=== PATIENT | female | born 1950 | race Caucasian/White ===

== ENCOUNTER 2018-05-29 15:27 | Observation (INO) | payer MEDICARE, OTHER ==
[~2018-05-29] VITALS: Wt 84.5 kg
[2018-05-29 16:04] LABS: BASO # 0.1 (0.0-0.2); BASO % 0.7 % (0.0-2.0); EOS # 0.3 (0.0-0.7); EOS % 2.5 % (0-4.0); GRAN # 7.5 (1.4-6.5); GRAN % 68.5 % (42.2-75.2); HEMOGLOBIN 14.6 g/dl (12.5-16.0); LYMPH # 2.5 (1.2-3.4); LYMPH % 22.7 % (20.0-51.0); MEAN CELL VOLUME 90 fl (80.0-100.0); MEAN CORPUSCULAR HEMOGLOBIN 30 pg (27.0-31.0); MEAN CORPUSCULAR HGB CONC 33 g/dl (33.0-37.0); MEAN PLATELET VOLUME 9.5 fl (7.4-10.4); MONO # 0.6 (0.1-0.6); MONO % 5.2 % (1.7-9.3); PLATELET COUNT 329 K/mm3 (130-400); REDCELL DISTRIBUTION WIDTH-CV 13.1 % (11.5-14.5)
[2018-05-29 16:09] LABS: ARTERIAL BLD GAS O2 SATURATION 95.2 % (92-100); ARTERIAL BLD GAS TCO2 CT 21.4; ARTERIAL BLOOD GAS BASE EXCESS -3.6 (-2-2); ARTERIAL BLOOD GAS HCO3 20.4 meq/L (22-26)
[2018-05-29] MEDS ORDERED: ZESTRIL 5MG5 MG PO (16:10)
[2018-05-29] MEDS ORDERED: GLUCOPHAGE500 MG/TAB PO (16:12)
[2018-05-29 16:24] LABS: ALANINE AMINOTRANSFERASE 29 U/L (9-52); ALBUMIN 3.8 gm/dL (3.5-5.0); ALKALINE PHOSPHATASE 75 U/L (50-136); ANION GAP 10 mmol/L (7-16); AST,SGOT 36 U/L (15-37); BILIRUBIN,TOTAL 0.4 mg/dL (0.0-1.0); BLOOD UREA NITROGEN 18 mg/dL (7-17); CALCIUM 9.1 mg/dL (8.4-10.2); CARBON DIOXIDE 26 mmol/L (22-30); CHLORIDE 102 mmol/L (98-107); CREATININE, serum 0.87 mg/dL (0.52-1.25); GLUCOSE 147 mg/dL (74-106); POTASSIUM 3.7 mmol/L (3.4-5.0); SODIUM 138 mmol/L (137-145); TOTAL PROTEIN 6.8 gm/dL (6.4-8.2)
[2018-05-29 16:36] LABS: TROPONIN-I < 0.012 ng/mL (0.000-0.034)
[2018-05-29 17:53] LABS: COLLECTION METHOD CLEAN CATCH
[2018-05-29 18:08] LABS: MUCOUS Present /lpf; PH 5 (5-8); SQUAMOUS EPITHELIAL 0-2 /hpf; URINE APPEARANCE Clear; URINE BACTERIA None Seen /hpf; URINE BILIRUBIN Negative (NEGATIVE); URINE BLOOD Negative (NEGATIVE); URINE COLOR Yellow; URINE GLUCOSE Negative (NEGATIVE); URINE KETONE Negative (NEGATIVE); URINE LEUKOCYTE ESTERASE Trace (NEGATIVE); URINE NITRATE Negative (NEGATIVE); URINE PROTEIN(semi-quant) Negative (NEGATIVE); URINE RBC 0-2 /hpf; URINE UROBILINOGEN Negative (NEGATIVE)
[2018-05-29 19:06] VITALS: BP 133/70; PULSE 74; TEMP 97.7
[2018-05-29] MEDS ORDERED: ASPIRIN 81M81 MG/TA2 PO (19:35)
[2018-05-29 21:49] VITALS: BP 119/64; PULSE 71
[2018-05-29 21:50] VITALS: BP 116/66; PULSE 69
[2018-05-29 21:51] VITALS: BP 124/66; PULSE 72
[2018-05-29 23:07] VITALS: BP 106/50; PULSE 71; TEMP 98.3
[2018-05-30 03:08] VITALS: BP 125/60; PULSE 65; TEMP 98
[2018-05-30 06:09] LABS: BASO # 0.1 (0.0-0.2); BASO % 0.9 % (0.0-2.0); EOS # 0.3 (0.0-0.7); EOS % 4.7 % (0-4.0); GRAN # 4.2 (1.4-6.5); GRAN % 64.4 % (42.2-75.2); LYMPH # 1.6 (1.2-3.4); LYMPH % 23.7 % (20.0-51.0); MEAN CELL VOLUME 88 fl (80.0-100.0); MEAN CORPUSCULAR HGB CONC 33 g/dl (33.0-37.0); MEAN PLATELET VOLUME 9.6 fl (7.4-10.4); MONO # 0.4 (0.1-0.6); PLATELET COUNT 237 K/mm3 (130-400); RED BLOOD COUNT 3.91 M/mm3 (4.10-5.30); REDCELL DISTRIBUTION WIDTH-CV 13.2 % (11.5-14.5)
[2018-05-30 06:30] LABS: ANION GAP 9 mmol/L (7-16); BLOOD UREA NITROGEN 14 mg/dL (7-17); CALCIUM 8.4 mg/dL (8.4-10.2); CARBON DIOXIDE 22 mmol/L (22-30); CHLORIDE 109 mmol/L (98-107); CREATININE, serum 0.69 mg/dL (0.52-1.25); GLUCOSE 138 mg/dL (74-106); HEMATOCRIT 34.4 % (37.0-47.0); HEMOGLOBIN 11.5 g/dl (12.5-16.0); MEAN CORPUSCULAR HEMOGLOBIN 29 pg (27.0-31.0); POTASSIUM 4.1 mmol/L (3.4-5.0); SODIUM 140 mmol/L (137-145)
[2018-05-30 06:43] LABS: TROPONIN-I < 0.012 ng/mL (0.000-0.034)
[2018-05-30 07:51] VITALS: BP 118/63; PULSE 61; TEMP 97.9
== END 2018-05-30 16:32 | disposition home or self-care (01) ==
LOC: COL.ER 15:27 → MEDICAL 17:23
PROVIDERS: Family Medicine; Hospitalist
DX: R55 Syncope and collapse (principal); E87.2 Acidosis; I10 Essential (primary) hypertension; I95.9 Hypotension, unspecified; Z79.84 Long term (current) use of oral hypoglycemic drugs
CPT/HCPCS: G0378; G0379; J1644; J1815; J7030; Q9967

== ENCOUNTER 2019-06-27 10:28 | Inpatient (IN) | payer MEDICARE, OTHER ==
[~2019-06-27] VITALS: Ht 167.6 cm; Wt 89.4 kg
[2019-06-27] VITALS (8 sets, daily range): BP systolic 118–142; BP diastolic 42–68; PULSE 91–106; TEMP 97.7–97.9
[~2019-06-27 10:28] MED LIST: ASPIRIN 81M81 MG/TA2 PO; GLUCOPHAGE500 MG/TAB PO; ZESTRIL 5MG5 MG PO
[2019-06-27] MEDS ORDERED: B COMPLEX & B121 TAB (12:01)
[2019-06-27] MEDS ORDERED: MULTI VITAMINS1 TAB PO (12:01)
[2019-06-27] MEDS ORDERED: ARICEPT 5MG PO (12:03)
[2019-06-27] MEDS ORDERED: NAMENDA5 MG PO (12:04)
[2019-06-27] MEDS ORDERED: CALCIUM CARBON650 M2 (12:05)
[2019-06-27] MEDS ORDERED: PRIL40 PO (12:07)
--- NOTE | 2019-06-27 20:15 | NUR ---
Pt. arrived to the floor via bed from PACU. Pt. is alert and oriented to self and birthday. Pt. not able to name location of self. IV to rt. AC petent, IV fluids infusing per orders. Vitals stable. Dressing to abd. midline incision CDI. Colostomy noted with minimal bloody drainage in bag. Hirsch catheter to DD, red-tinged urine noted. Pt. very drowsey at this time. Will monitor. Bed alarm on.
[2019-06-27] MEDS ORDERED: ZOLOFT 25MG25 MG PO (21:34)
[2019-06-28 03:59] VITALS: BP 131/65; PULSE 104; TEMP 98.2
[2019-06-28 06:52] LABS: ALBUMIN 2.3 gm/dL (3.5-5.0); BILIRUBIN,TOTAL 0.3 mg/dL (0.0-1.0); CALCIUM 7.3 mg/dL (8.4-10.2); CREATININE, serum 0.71 (0.52-1.25); POTASSIUM 4.4 mmol/L (3.4-5.0); TOTAL PROTEIN 4.9 gm/dL (6.4-8.2)
[2019-06-28 07:25] VITALS: BP 147/74; PULSE 105; TEMP 97.5
--- NOTE | 2019-06-28 08:00 | NUR ---
Patient in bed resting. Alert and oriented to person and place. Midline incision with gauze dressing, bloody drainage present. Ostomy to right abdomen with gas and loose stool present. Small amount of bloody drainage present in ostomy bag. Hirsch to dependent drainage with hazy silvestre urine present. SCDs to BLE. Fluids infusing per orders to Right AC. Epidural site intact. Denies pain or further needs at this time. Spouse at bedside.
[2019-06-28 08:53] LABS: HEMATOCRIT 39.6 % (37.0-47.0); HEMOGLOBIN 13.1 g/dl (12.5-16.0); MEAN CELL VOLUME 89 fl (80.0-100.0); MEAN CORPUSCULAR HEMOGLOBIN 29 pg (27.0-31.0); MEAN CORPUSCULAR HGB CONC 33 g/dl (33.0-37.0); MEAN PLATELET VOLUME 9.4 fl (7.4-10.4); PLATELET COUNT 499 K/mm3 (130-400); RED BLOOD COUNT 4.46 M/mm3 (4.10-5.30); REDCELL DISTRIBUTION WIDTH-CV 13.4 % (11.5-14.5)
[2019-06-28 09:14] LABS: BAND 33 % (0-10); LYMPHOCYTE 2 % (20.0-51.0); METAMYELOCYTE 2 % (0-0); NEUTROPHILS 57 % (42.0-75.2)
[2019-06-28 09:15] LABS: BURR CELLS 3+; PLATELET ESTIMATE INCREASED (NORMAL)
[2019-06-28 09:16] LABS: HYPOCHROMIA 1+
[2019-06-28 10:42] LABS: COLLECTION METHOD CATHETER
[2019-06-28 10:56] LABS: MUCOUS Present /lpf; PH 5 (5-8); SQUAMOUS EPITHELIAL None Seen /hpf; URINE APPEARANCE Cloudy; URINE BACTERIA None Seen /hpf; URINE BILIRUBIN Negative (NEGATIVE); URINE BLOOD 3+ (NEGATIVE); URINE COLOR Amber; URINE GLUCOSE 1+ (NEGATIVE); URINE KETONE 2+ (NEGATIVE); URINE LEUKOCYTE ESTERASE Trace (NEGATIVE); URINE NITRATE Negative (NEGATIVE); URINE PROTEIN(semi-quant) 2+ (NEGATIVE); URINE RBC >50 /hpf; URINE UROBILINOGEN >=4.0 mg/dL (NEGATIVE)
[2019-06-28 12:10] VITALS: BP 152/70; PULSE 107; TEMP 97.9
[2019-06-28 16:17] VITALS: BP 126/67; PULSE 117; TEMP 98.6
--- NOTE | 2019-06-28 16:27 | NUR ---
Senior Manufacturing Technician met with patient's Michael (ph#[phone]) and patient's daughter in law Liz as patient was sleeping. Patient's reports he and patient live in [place]. Patient receives primary care from [facility] and obtains medications from [facility] in [place]. Patient does not have Advance Directives on file but patient's was interested in taking the form to be completed tomorrow. JULIO provided. Patient's and patient's daughter in law discussed a skilled stay upon discharge so SW presented Medicare.gov list of retirement facilities in the area. SW also presented Patient Choice form. Patient's selected [facility] as first preference, [facility] as second preference, and [place] [facility] as [facility] preference. Patient's understood the choice form and provided signature. JULIO placed original in patient's chart and provided copy to patient's . JULIO faxed referrals to [facility], [facility], and [place] [facility]. JULIO will continue to follow.
--- NOTE | 2019-06-28 16:37 | NUR ---
Notified Rona EVANGELISTA of decreased urine output.
--- NOTE | 2019-06-28 16:59 | NUR ---
Bladder scanned patient, 26ml of urine in bladder.
[2019-06-28 18:26] LABS: CALCIUM 7.7 mg/dL (8.4-10.2); CREATININE, serum 1.15 (0.52-1.25); POTASSIUM 4.3 mmol/L (3.4-5.0)
--- NOTE | 2019-06-28 18:50 | NUR ---
Patient drowsy throughout the day, arouses to voice and touch. Family remains at bedside. Reported off to security shift manager.
--- NOTE | 2019-06-28 20:00 | NUR ---
Patient rouses to name only, family at bedside. Has Epidural infusing at 7cc/hr, site has mild drainage on gauze. Has edema to both arms, urine remains tea colored with poor output. Did deflate and reinflate balloon and irrigate with 10cc NS. IV site to right AC with LR at 150cc/hr. Midline incision without drainage, colostomy with pink watery fluid in bag. Stoma firm, dark red.
[2019-06-28 21:47] VITALS: BP 98/53; PULSE 131; TEMP 99.2
[2019-06-28 22:42] VITALS: BP 109/59; PULSE 120; TEMP 101.4
--- NOTE | 2019-06-28 22:46 | NUR ---
Spoke with Dr Stinson regarding patient's status, fever 101.4 ax, resp 28/min HR in 120's. Patient is lethargic. Placed on oxygen at 3L/nc for SaO2 90%. Urine output 50cc brown since fluids have been infusing at 150cc/hr since 1529 today. Bilateral arms are edematous. Will notify surgeon sediment remediation consultant also.
--- NOTE | 2019-06-28 22:50 | NUR ---
Spoke with Dr Hannon regarding patients status. New order for NS bolus of 500cc over 2 hours then NS at 150cc/hr. Tylenol suppos for fever greater than 101.4.
[2019-06-29] VITALS (312 sets, daily range): BP systolic 76–121; BP diastolic 25–62; PULSE 103–124; TEMP 97.5–102.7; O2SAT 66–100
--- NOTE | 2019-06-29 00:05 | NUR ---
Tylenol suppository given at this time. Patient moans in pain when being turned. Gauze to epidural catheter with drainage. Patient will transfer to ICU 2 due to elevated lactic acid of 4.4 and decreased urine output. Attempted to find second IV site without success. IV NS bolus infusing to right AC without problem.
--- NOTE | 2019-06-29 00:53 | NUR ---
Precious, RN calls report from surgical floor. Patient will be brought down shortly.
--- NOTE | 2019-06-29 01:00 | NUR ---
IV Bolus complete. IVF of NS at 150cc/hr infusing with concurrent Zosyn 4.5GM at this time. Report to Nia BECERRA in ICU. Urine output 75cc since 1900.
--- NOTE | 2019-06-29 01:09 | NUR ---
Patient arrives at this time via bed. Patient moved to unit bed via slide board. Patient opens eyes to name, but does not stay awake long. It takes multiple tries to keep her awake to get her to squeeze her hands, then she immediately falls asleep again. Patient is resposive to pain when turning, she moans out and says "no no no", then falls back asleep once movement has stopped. Patient's pupils are constricted and nonreactive. Assessment complete. Lungs are clear in the upper lobes and diminished in all, bases bilaterally are absent. Bowel sounds heard in the right upper quadrant, all others are hypoactive. HR and Rhythm are regular, she is tachycardic in the 120-130's. Peripheral pulses are barely palpable in all extremities. Patient's skin is hot to the touch and she is very diaphoretic. Temperature measured at 102.7. Room fan turned on and AC turned up. Patient's stoma is a dark red/purple color and is leaking serosanguinous fluid. There are small black pieces present at the stoma site that look like they are from cautery. Patient's nova catheter is patent and has a very small amount of dark brown urine in the collection chamber, no urine is present in the tubing. It was stated by MARIAM Lang on surgical that patient only had 75ml out for the enitre shift so far. Patient has no current needs at this time. Will check orders and proceed with care
--- NOTE | 2019-06-29 01:15 | NUR ---
Taken to ICU 2 via bed, accompanied by staff and spouse.
--- NOTE | 2019-06-29 01:35 | NUR ---
Dr Hannon here at this time to place a central line. Time out performed at this time. All staff present wearing masks. Prep and procedure begins at this time. This nurse remains at bedside through entire procedure and assists as needed. 0150 - Central line complete. Triple lumen catheter is placed left subclavian. Sterile caps applied, blood turn confirmed, dressing applied. Stat chest xray ordered to confirm placement.
--- NOTE | 2019-06-29 02:30 | NUR ---
This nurse has been at patient's bedside since arrival. Patient is a very hard stick for ABG's. Assisted RT Mayo and RT Yuliana with ABG draw and finding a site as pulses are very hard to find. Patient's work of breathing has increased, respiratory rate has been increasing. Repositioned patient in the bed, HOB elevated, and O2 increased to 4L. Patient continues to be hot and diaphoretic. Sheet removed and fan increased. Will continue to remain at bedside.
[2019-06-29 02:48] LABS: INR 1.7 (0.8-3.0); PROTHROMBIN TIME 20.3 SECONDS (9.7-12.8)
[2019-06-29 03:04] LABS: ARTERIAL BLD GAS O2 SATURATION 95.1 % (92-100); ARTERIAL BLOOD GAS BASE EXCESS -10.6 (-2-2); ARTERIAL BLOOD GAS HCO3 12.3 meq/L (22-26); ARTERIAL BLOOD GAS PO2 74.1 mmHg (80-100); ARTERIAL BLOOD GAS pH 7.38 (7.35-7.45)
[2019-06-29 03:06] LABS: ARTERIAL BLOOD GAS PCO2 21.6 mmHg (35-45)
--- NOTE | 2019-06-29 03:32 | NUR ---
[facility] at [facility] time and spoke with Amelia. Notified that patient is looking worse. Work of breathing has increased and rate is up to 36. Patient continues to be tachycardic in the 120's. Patient is only 92% on 4L NC. Requesting recomendations from Physician. 0345 - EICU calls back at this time and cameras into the room. Spoke with Dr. Rivera and gave him update on patient status. Patient is now cool and clammy. She looks worse than when she arrived. Had had no urine output since arrival. Nicole Recommends intubation as patient is deteriorating. He will fax over orders shortly with his recommendations. 0357 - Dr Akhtar called at this time and notified that EICU has recommended that patient be intubated. Updated him on patient status. Dr. Akhtar agrees with recommendation and requests that I call and speak with Dr. Stinson as to who he would like to intubate the patient. Dr. Akhtar says he will be here in 45-60mins. 0403 - Dr. Stinson called and notified of patient status. Dr. Stinson also agrees with intubation. Would like Anesthesia called to intubate the patient. 0406 - Spoke with Frank from anesthesia and he is coming in for intubation. 0408 - RT Mayo notified that we will be intubating with anesthesia intubated.
--- NOTE | 2019-06-29 04:20 | NUR ---
CHRISTOPHER Marie from [facility] here at this time to intubate. RSI kit and Intubation box are ready in the room. All suction in room ready and vent on standby at bedside. All consents obtained from , Michael. He has been explained the procedure and we will proceed. 0430 - CHRISTOPHER Marie Pulls up and gives medications. With assistance of RT Mayo, patient is positioned and bagged. Restraints applied to patient at this time. 0438 - patient intubated with a 7.5 tube, 22 at the teeth. 0450 - Procedure ends at this time. Patient's ET tube attached to ventilator. Stat chest xray ordered at this time for placement confirmation. 0500 - OG tube placed at this time, confirmed with auscultation and aspiration of gastric contents. Radiology here for portable xray. Dr Akhtar confirms placement of ET and OG tubes.
--- NOTE | 2019-06-29 04:55 | NUR ---
Dr Akhtar here at this time.
[2019-06-29 05:28] LABS: HEMOGLOBIN 11.7 g/dl (12.5-16.0); MEAN CELL VOLUME 89 fl (80.0-100.0); MEAN CORPUSCULAR HEMOGLOBIN 29 pg (27.0-31.0); MEAN CORPUSCULAR HGB CONC 33 g/dl (33.0-37.0); MEAN PLATELET VOLUME 9.3 fl (7.4-10.4); RED BLOOD COUNT 4.04 M/mm3 (4.10-5.30); REDCELL DISTRIBUTION WIDTH-CV 13.6 % (11.5-14.5)
[2019-06-29 05:30] LABS: HEMATOCRIT 35.9 % (37.0-47.0); PLATELET COUNT 398 K/mm3 (130-400)
--- NOTE | 2019-06-29 05:30 | NUR ---
Dr. Akhtar requests that an arterial line be placed. CHRISTOPHER Marie remains in unit to place this. 0610 - Arterial line placed with difficulty. Good waveform achieved.
[2019-06-29 05:33] LABS: INR 1.9 (0.8-3.0); PROTHROMBIN TIME 22.2 SECONDS (9.7-12.8)
[2019-06-29 05:35] LABS: PARTIAL THROMBOPLASTIN TIME 46.8 SECONDS (26.0-37.0)
[2019-06-29 05:42] LABS: ALANINE AMINOTRANSFERASE 28 U/L (9-52); ALBUMIN 1.6 gm/dL (3.5-5.0); ALKALINE PHOSPHATASE 43 U/L (50-136); ANION GAP 13 mmol/L (7-16); AST,SGOT 27 U/L (15-37); BILIRUBIN,TOTAL 0.3 mg/dL (0.0-1.0); BLOOD UREA NITROGEN 38 mg/dL (7-17); CALCIUM 7.1 mg/dL (8.4-10.2); CHLORIDE 112 mmol/L (98-107); CREATININE, serum 2.03 (0.52-1.25); GLUCOSE 142 mg/dL (74-106); POTASSIUM 4.8 mmol/L (3.4-5.0); SODIUM 137 mmol/L (137-145); TOTAL PROTEIN 3.7 gm/dL (6.4-8.2)
[2019-06-29 05:44] LABS: CARBON DIOXIDE 12 mmol/L (22-30)
[2019-06-29 05:51] LABS: TROPONIN-I < 0.012 ng/mL (0.000-0.035)
[2019-06-29 05:54] LABS: BAND 5 % (0-10); HYPOCHROMIA 1+; LYMPHOCYTE 2 % (20.0-51.0); MYELOCYTE 3 % (0-0); NEUTROPHILS 86 % (42.0-75.2); PLATELET ESTIMATE NORMAL (NORMAL); TOXIC GRANULATION PRESENT
--- NOTE | 2019-06-29 06:00 | NUR ---
Dr. Akhtar gives verbal orders at this time to start levophed and bolus another 500ml of LR. Levophed to be started per orders.
--- NOTE | 2019-06-29 06:38 | NUR ---
Vancomycin Initial Dosing Pharmacy Note Ordering provider: Hermilo Indication/duration: GI infection LABS: SCr 2.03 on 06/29/19 Recommendation: Loading dose: 1 gram given 06/29/19 @ 0600 Maintenance dose: 1 gram Q24H Trough goal: 15-20 ug/mL Will continue to monitor renal function and trough levels.
--- NOTE | 2019-06-29 07:10 | NUR ---
PT WAS INTUBATED AROUND 0420 WITH SETTINGS FROM [facility] OF 24RR, 450 VT, 100%, 5 OF PEEP. GOOD CHEST RAISE, COLOR CHANGE, BILATERAL BREATH SOUNDS. PT ON DOCUMENTED SETTINGS.
--- NOTE | 2019-06-29 07:45 | NUR ---
Bedside report given to MARIAM Zuleta. All lines, tubes, medications, and surgical sites confirmed and assessed. Transfer of care at this time.
--- NOTE | 2019-06-29 07:45 | NUR ---
Bedside report received from MARIAM Kramer. All lines, tubes and vent settings reviewed. Care taken over at this time.
[2019-06-29 07:47] LABS: ARTERIAL BLD GAS O2 SATURATION 99.4 % (92-100); ARTERIAL BLOOD GAS BASE EXCESS -14.3 (-2-2); ARTERIAL BLOOD GAS HCO3 10.3 meq/L (22-26); ARTERIAL BLOOD GAS pH 7.29 (7.35-7.45)
[2019-06-29 07:48] LABS: ARTERIAL BLOOD GAS PCO2 21.9 mmHg (35-45)
[2019-06-29 07:49] LABS: ARTERIAL BLOOD GAS PO2 204.6 mmHg (80-100)
--- NOTE | 2019-06-29 10:00 | NUR ---
AFTER MEETINGS WITH BOTH DR. RAMOS AND DR. CALIX. THE FAMILY HAS DECIDED TO PROCEED WITH DNR CODE STATUS AND ULTIMATELY WILL PROCEED TO COMFORT CARE AFTER THE FAMILY HAS HAD A CHANCE TO COME SEE THE PATIENT. ALL QUESTIONS ANSWERED AND EMOTIONAL SUPPORT GIVEN. PASTORAL CARE CONTACTED TO ENSURE ALL SPIRITUAL NEEDS ARE MET.
--- NOTE | 2019-06-29 11:06 | NUR ---
Initial visit; Looked in on family several times and let them know Spiritual Care is available in addition to their Pastoral visits from home. Account Development Manager is always avaiable to them in the interim.
--- NOTE | 2019-06-29 12:20 | NUR ---
Patient extubated per family request d/t proceeding with comfort care measures. Patient tolerated well and appears to be resting peacefully.
--- NOTE | 2019-06-29 13:08 | NUR ---
Patient expires at this time. Dr. Zamarripa present to pronounce. Emotional support given to the family
--- NOTE | 2019-06-29 13:30 | NUR ---
VAN notified that patient had , referral # [id number]. May release body to home at this time.
--- NOTE | 2019-06-29 13:32 | NUR ---
[facility] notified.
--- NOTE | 2019-06-29 14:13 | NUR ---
PT EXUBATED TO COMFORT CARE AT 1220 PER MD ORDER. PT SUCTIONED PRIOR TO EXTUBATION. PT ON ROOM AIR.
--- NOTE | 2019-06-29 14:30 | NUR ---
PATIENT LEAVES TO HOME AT THIS TIME.
[2019-07-01 06:13] LABS: C-REACTIVE PROTEIN 30.7 mg/dL (0.0-0.9)
== END 2019-06-29 14:30 | disposition expired | DRG 329 ==
LOC: SURG 10:28 → ICU 06-29 00:57
PROVIDERS: Internal Medicine; Internal Medicine Pulmonary Disease; Physician Assistant; Urology; ADMIT Surgery
PROC: 0DTG0ZZ Resection of Left Large Intestine, Open Approach (ICD-10-PCS; principal; 2019-06-27 15:00)
PROC: 0D1L0Z4 Bypass Transverse Colon to Cutaneous, Open Approach (ICD-10-PCS; 2019-06-27 15:00)
PROC: 0T788DZ Dilation of Bilateral Ureters with Intraluminal Device, Via Natural or Artificial Opening Endoscopic (ICD-10-PCS; 2019-06-27 15:00)
PROC: 0BH17EZ Insertion of Endotracheal Airway into Trachea, Via Natural or Artificial Opening (ICD-10-PCS; 2019-06-29)
PROC: 5A1935Z Respiratory Ventilation, Less than 24 Consecutive Hours (ICD-10-PCS; 2019-06-29)
PROC: 03HY32Z Insertion of Monitoring Device into Upper Artery, Percutaneous Approach (ICD-10-PCS; 2019-06-29)
PROC: 05H633Z Insertion of Infusion Device into Left Subclavian Vein, Percutaneous Approach (ICD-10-PCS; 2019-06-29)
DX: K56.609 Unspecified intestinal obstruction, unspecified as to partial versus complete obstruction (principal); A41.9 Sepsis, unspecified organism; R65.21 Severe sepsis with septic shock; K57.32 Diverticulitis of large intestine without perforation or abscess without bleeding; N39.0 Urinary tract infection, site not specified; E87.4 Mixed disorder of acid-base balance; N17.9 Acute kidney failure, unspecified; E11.9 Type 2 diabetes mellitus without complications; I10 Essential (primary) hypertension; Z66 Do not resuscitate; F03.90 Unspecified dementia, unspecified severity, without behavioral disturbance, psychotic disturbance, mood disturbance, and anxiety; E87.8 Other disorders of electrolyte and fluid balance, not elsewhere classified; E78.5 Hyperlipidemia, unspecified; M19.90 Unspecified osteoarthritis, unspecified site; R06.03 Acute respiratory distress; E66.9 Obesity, unspecified; Z79.82 Long term (current) use of aspirin; Z79.84 Long term (current) use of oral hypoglycemic drugs; Z96.651 Presence of right artificial knee joint; Z90.710 Acquired absence of both cervix and uterus
CPT/HCPCS: 99222; 99232-AI; 99239; A4216; A4314; A9284; C1769; J0330; J0690; J0696; J1100; J1450; J1720; J1815; J2185; J2250; J2405; J2543; J2704; J2710; J2795; J3010; J3370; J7030; J7040; J7050; J7060; J7120